=== PATIENT | female | born 1970 | race Caucasian/White ===

== ENCOUNTER → 2017-03-12 15:23 | Emergency (ER) | payer OTHER ==
[~2017-03-12 15:23] MED LIST: NS 0.9% 1000 ML* 1,000 ML IV ONE
--- NOTE | 2017-03-12 17:33 | RAD ---
INDICATION: Palpitations. COMPARISON: Comparison is made with a prior study from March 09, 2017. TECHNIQUE: A portable view of the chest was obtained. FINDINGS: The heart appears mildly prominent and unchanged from the prior exam. The lungs are underinflated and clear. No pleural effusion is seen. IMPRESSION: THE HEART APPEARS MILDLY PROMINENT FOR THIS PORTABLE EXAM AND IS UNCHANGED FROM THE PRIOR STUDY.
[2017-03-12 17:42] LABS: Hematocrit 38 % (35-47); Hemoglobin 12.3 g/dl (12.0-16.0); Mean Corpuscular HGB Conc 32 g/dl (31-36); Mean Corpuscular Hemoglobin 24 pg (27-31); Mean Corpuscular Volume 75 fL (80-97); Mean Platelet Volume 9 um3 (7.4-10.4); Red Blood Count 5.08 10^6/ul (4.0-5.4); Red Cell Distribution Width 17 % (10.5-15); White Blood Count 8.4 10^3/ul (3.5-10.8)
[2017-03-12 17:57] LABS: BUN/Creatinine Ratio 15.4 (8-20); EGFR African American 101.4 (>60); EGFR Non-African American 78.8 (>60); Globulin 2.8 g/dL (2-4); Magnesium 2.1 mg/dL (1.9-2.7); Potassium 3.9 mmol/L (3.5-5.0); Total Bilirubin 0.2 mg/dL (0.2-1.0); Total Protein 6.8 g/dL (6.4-8.9)
[2017-03-12 18:23] LABS: TSH (Thyroid Stimulating Horm) 1.57 mcIU/mL (0.34-5.60)
[2017-03-12 22:38] VITALS: BP 134/86
--- NOTE | 2017-03-13 03:19 | ED ---
Giselle Jacinto Alfonso, scribed for Deborah Gottlieb MD on 03/12/17 at 1808 . 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 She states she was diagnosed with atrial flutter on 03/09/17 and was advised to f/u with cardiology. Has not yet seen the gas systems worker. Her symptoms are alleviated and exacerbated by nothing. She c/o SOB. Denies CP, nausea, and vomiting. Pt was started on atenolol 25mg qd and has been taking that. Pt has also been avoiding alcohol and caffeine. - History of Current Complaint Chief Complaint: EDDysrhythmPalp Time Seen by Provider: 03/12/17 16:47 Hx Obtained From: Patient Onset/Duration: Sudden Onset, Lasting Hours - Earlier today, Still Present Timing: Constant Severity Initially: Moderate Severity Currently: Moderate Character: Pounding Aggravating: Nothing Alleviating: Nothing Associated Signs & Symptoms: Negative - Nausea, vomitting, CP, Shortness of Breath Related History: Similar Episode/Dx as - afib/flutter, SVT - Allergy/Home Medications Allergies/Adverse Reactions: Allergies Allergy/AdvReac Type Severity Reaction Status Date / Time ENVIRONMENTAL Allergy SINUS, Uncoded 12/18/13 06:42 BREATHING DIFFICULTY PMH/Surg Hx/FS Hx/Imm Hx Endocrine/Hematology History: Reports: Hx Anemia - HX- ON IRON FOR Cardiovascular History: Reports: Hx Supraventricular Ventricular Tachycardia Denies: Hx Hypertension Respiratory History: Reports: Hx Asthma - PRN ALBUTEROL Sensory History: Reports: Hx Contacts or Glasses - GLASSES Denies: Hx Hearing Aid Opthamlomology History: Reports: Hx Contacts or Glasses - GLASSES - Surgical History Surgery Procedure, Year, and Place: WISDOM TEETH EXTRACTION- DENTAL OFFICE Hx Anesthesia Reactions: No Infectious Disease History: No Infectious Disease History: Denies: Traveled Outside the [place] in Last 30 Days - Family History Known Family History: Positive: Cardiac Disease, Hypertension, Diabetes - Social History Alcohol Use: Occasionally Alcohol Amount: 2-3 PER MONTH Hx Substance Use: No Substance Use Type: Reports: None Hx Tobacco Use: No Smoking Status (MU): Never Smoked Tobacco Review of Systems Constitutional: Negative Positive: Palpitations. Negative: Chest Pain Positive: Shortness Of Breath Negative: Vomiting, Nausea Musculoskeletal: Negative Skin: Negative Neurological: Negative Psychological: Normal All Other Systems Reviewed And Are Negative: Yes Physical Exam Triage Information Reviewed: Yes Vital Signs On Initial Exam: Initial Vitals Temp Pulse Resp BP Pulse Ox 98.2 F 124 20 137/112 100 03/12/17 15:25 03/12/17 15:25 03/12/17 15:25 03/12/17 15:25 03/12/17 15:25 Vital Signs Reviewed: Yes Appearance: Positive: No Pain Distress, Well-Nourished, Ill-Appearing Skin: Positive: Warm, Dry Eyes: Positive: EOMI, Conjunctiva Clear ENT: Positive: Normal ENT inspection, Hearing grossly normal. Negative: Muffled /hoarse voice Neck: Positive: Supple, Nontender, Other: - Prominent neck vein pulsations. Respiratory/Lung Sounds: Positive: Clear to Auscultation, Breath Sounds Present , Other - No respiratory distress Cardiovascular: Positive: RRR, Pulses are Symmetrical in both Upper and Lower Extremities, Other - brisk capillary refill. Negative: Murmur Abdomen Description: Positive: Nontender, No Organomegaly, Soft. Negative: Distended, Guarding, Hepatomegaly, McBurney's Point Tenderness, Peritoneal Signs , Pulsatile Mass, Splenomegaly Bowel Sounds: Positive: Present Musculoskeletal: Positive: Strength/ROM Intact. Negative: Edema Left, Edema Right Neurological: Positive: Sensory/Motor Intact, Alert, Oriented to Person Place, Time, Other - Alert, Muscle tone normal. Negative: Facial Droop, Focal Deficit @, Slurred Speech Psychiatric: Positive: Normal - Crowder Coma Scale Coma Scale Total: 15 Diagnostics - Vital Signs Vital Signs Temp Pulse Resp BP Pulse Ox 03/12/17 17:30 121 23 123/98 99 03/12/17 17:28 122 14 100 03/12/17 17:27 124/88 03/12/17 15:28 98.1 F 123 20 137/112 100 03/12/17 15:25 98.2 F 124 20 137/112 100 - Laboratory Lab Results: Lab Results 03/12/17 03/12/17 03/12/17 Range/Units 17:30 17:30 17:30 WBC 8.4 (3.5-10.8) 10^3/ul RBC 5.08 (4.0-5.4) 10^6/ul Hgb 12.3 (12.0-16.0) g/dl Hct 38 (35-47) % MCV 75 L (80-97) fL MCH 24 L (27-31) pg MCHC 32 (31-36) g/dl RDW 17 H (10.5-15) % Plt Count 317 (150-450) 10^3/ul MPV 9 (7.4-10.4) um3 Neut % (Auto) 59.6 (38-83) % Lymph % (Auto) 30.2 (25-47) % [place] % (Auto) 7.6 (1-9) % Eos % (Auto) 1.5 (0-6) % Baso % (Auto) 1.1 (0-2) % Absolute Neuts (auto) 5.0 (1.5-7.7) 10^3/ul Absolute Lymphs (auto) 2.5 (1.0-4.8) 10^3/ul Absolute Monos (auto) 0.6 (0-0.8) 10^3/ul Absolute Eos (auto) 0.1 (0-0.6) 10^3/ul Absolute Basos (auto) 0.1 (0-0.2) 10^3/ul Absolute Nucleated RBC 0.01 10^3/ul Nucleated RBC % 0.1 INR (Anticoag Therapy) 0.88 L (0.89-1.11) APTT 32.8 (26.0-36.3) seconds D-Dimer, Quantitative 294 H (Less Than 230) ng/mL Sodium 139 (133-145) mmol/L Potassium 3.9 (3.5-5.0) mmol/L Chloride 106 (101-111) mmol/L Carbon Dioxide 27 (22-32) mmol/L Anion Gap 6 (2-11) mmol/L BUN 12 (6-24) mg/dL Creatinine 0.78 (0.51-0.95) mg/dL Est GFR ( Amer) 101.4 (>60) Est GFR (Non-Af Amer) 78.8 (>60) BUN/Creatinine Ratio 15.4 (8-20) Glucose 104 H (70-100) mg/dL Lactic Acid (0.5-2.0) mmol/L Calcium 9.0 (8.6-10.3) mg/dL Magnesium 2.1 (1.9-2.7) mg/dL Total Bilirubin 0.20 (0.2-1.0) mg/dL AST 18 (13-39) U/L ALT 17 (7-52) U/L Alkaline Phosphatase 51 (34-104) U/L Total Creatine Kinase 61 (10-223) U/L CK-MB (CK-2) Pending Troponin I Pending Total Protein 6.8 (6.4-8.9) g/dL Albumin 4.0 (3.2-5.2) g/dL Globulin 2.8 (2-4) g/dL Albumin/Globulin Ratio 1.4 (1-3) TSH Pending 03/12/17 Range/Units 17:30 WBC (3.5-10.8) 10^3/ul RBC (4.0-5.4) 10^6/ul Hgb (12.0-16.0) g/dl Hct (35-47) % MCV (80-97) fL MCH (27-31) pg MCHC (31-36) g/dl RDW (10.5-15) % Plt Count (150-450) 10^3/ul MPV (7.4-10.4) um3 Neut % (Auto) (38-83) % Lymph % (Auto) (25-47) % [place] % (Auto) (1-9) % Eos % (Auto) (0-6) % Baso % (Auto) (0-2) % Absolute Neuts (auto) (1.5-7.7) 10^3/ul Absolute Lymphs (auto) (1.0-4.8) 10^3/ul Absolute Monos (auto) (0-0.8) 10^3/ul Absolute Eos (auto) (0-0.6) 10^3/ul Absolute Basos (auto) (0-0.2) 10^3/ul Absolute Nucleated RBC 10^3/ul Nucleated RBC % INR (Anticoag Therapy) (0.89-1.11) APTT (26.0-36.3) seconds D-Dimer, Quantitative (Less Than 230) ng/mL Sodium (133-145) mmol/L Potassium (3.5-5.0) mmol/L Chloride (101-111) mmol/L Carbon Dioxide (22-32) mmol/L Anion Gap (2-11) mmol/L BUN (6-24) mg/dL Creatinine (0.51-0.95) mg/dL Est GFR ( Amer) (>60) Est GFR (Non-Af Amer) (>60) BUN/Creatinine Ratio (8-20) Glucose (70-100) mg/dL Lactic Acid 1.0 (0.5-2.0) mmol/L Calcium (8.6-10.3) mg/dL Magnesium (1.9-2.7) mg/dL Total Bilirubin (0.2-1.0) mg/dL AST (13-39) U/L ALT (7-52) U/L Alkaline Phosphatase (34-104) U/L Total Creatine Kinase (10-223) U/L CK-MB (CK-2) Troponin I Total Protein (6.4-8.9) g/dL Albumin (3.2-5.2) g/dL Globulin (2-4) g/dL Albumin/Globulin Ratio (1-3) TSH Result Diagrams: 03/12/17 17:30 03/12/17 17:30 Lab Statement: Any lab studies that have been ordered have been reviewed, and results considered in the medical decision making process. - Radiology CXR Xray Interpretation: No Acute Changes - THE HEART APPEARS MILDLY PROMINENT FOR THIS PORTABLE EXAM AND IS UNCHANGED FROM THE PRIOR STUDY. Radiology Interpretation Completed By: Radiologist - EKG 1110 Cardiac Rate: Tachycardia - 133 bpm EKG Rhythm: SVT - 133 bpm EKG Interpretation: Nl IV CT, nl QTC, inverted P waves in lead 3, no acute changes 0 Cardiac Rate: NL - 63 bpm EKG Rhythm: Sinus Rhythm EKG Interpretation: Nl AV/IV CT, nl axis EKG Comparison: Other - compared with previous at 1110 now in sinus rhythm Re-Evaluation - Re-Evaluation First Eval Re-Evaluation Time: 21:51 Change: Improved Comment: Pt is doing well. Discussed D/C plan with her. No CP, no SOB, no pain in her calves. No FHx clots No PMHx clots. No risk factors for DVT. Sinus rhythm 63 on the monitor. States she has been taking the atenolol daily. Course/Dx - Course Assessment/Plan: Pt is a 46 y/o F who presents to ED c/o palpitations. She c/o SOB. Denies CP, N/V. Dx atrial flutter on 03/09/2017 and started on atenolol. CXR reveals no acute findings. initial EKG reveals SVT 133. Pt's rhythm broke spontaneously to SR. trop is neg, TSH normal. EKG's discussed with Dr. Shah. Allergies noted. Pt medications reviewed this visit. - Diagnoses Differential Diagnosis/HQI/PQRI: Positive: Coronary Artery Disease, Mitral Valve Prolapse, Paroxymal SVT Provider Diagnoses: Supraventricular tachycardia, Palpitations - Physician Notifications Discussed Care Of Patient With: Maciej Shah Time Discussed With Above Provider: 21:49 Instructed by Provider To: Have Pt Call For Appt. - He will see her in the office, have her call for an appointment. Advises she avoids alcohol and caffeine as well as continues her atenolol. - Critical Care Time Critical Care Time: 30-74 min Discharge - Discharge Plan Condition: Stable Disposition: HOME Patient Education Materials: Supraventricular Tachycardia (ED), Palpitations ( ED) Referrals: Maciej Shah, [Medical Doctor] - As Soon As Possible (Dr. Shah will see you in the office in follow up. ) Nessa Lind MD [Primary Care Provider] - Additional Instructions: Dr. Shah, gas systems worker, will see you in the office in follow up. He advises you to continue the atenolol 25mg daily. He also advises you to avoid any alcohol and caffeine. Return to the emergency department if any new or worsening symptoms. The documentation as recorded by the Giselle livingston Alfonso accurately reflects the service I personally performed and the decisions made by me, Deborah Gottlieb MD.
== END | disposition home or self-care (01) ==
LOC: ED 15:23
DX: I47.1 Supraventricular tachycardia (principal); R00.2 Palpitations; R06.02 Shortness of breath; J45.909 Unspecified asthma, uncomplicated
CPT/HCPCS: 36415; 71010; 80053; 82550; 82553; 83605; 83735; 83880; 84443; 84484; 85025; 85379; 85610; 85730; 93005; 96360; 99282

== ENCOUNTER 2017-04-11 17:46 | Emergency (ER) | payer OTHER ==
[2017-04-11 17:52] VITALS: BP 154/86
[2017-04-11] MEDS ORDERED: Lidocaine 1% MPF* 2 ML VIAL INJ ONE (17:54)
--- NOTE | 2017-04-11 17:54 | UC ---
Laceration HPI - HPI Summary HPI Summary: 46YEAR OLD FEMALE PRESENTS WITH COMPLAINS OF RIGHT LITTLE FINGER LACERATION SECONDARY TO A KNIFE. - History Of Current Complaint Chief Complaint: UCLaceration Stated Complaint: FINGER LAC Time Seen by Provider: 04/11/17 17:53 - Allergies/Home Medications Allergies/Adverse Reactions: Allergies Allergy/AdvReac Type Severity Reaction Status Date / Time ENVIRONMENTAL Allergy SINUS, Uncoded 04/11/17 17:51 BREATHING DIFFICULTY PMH/Surg Hx/FS Hx/Imm Hx - Surgical History Surgical History: Yes Surgery Procedure, Year, and Place: WISDOM TEETH EXTRACTION- DENTAL OFFICE - Family History Known Family History: Positive: Cardiac Disease, Hypertension, Diabetes - Social History Alcohol Use: None Alcohol Amount: 2-3 PER MONTH Substance Use Type: None Smoking Status (MU): Never Smoked Tobacco - Immunization History Most Recent Tetanus Shot: 2006 Review of Systems Constitutional: Negative Skin: Other - RIGHT LITTLE FINGER LACERATION WITH FLAP INTACT Eyes: Negative ENT: Negative Respiratory: Negative Cardiovascular: Negative Gastrointestinal: Negative Genitourinary: Negative Motor: Negative Neurovascular: Negative Musculoskeletal: Negative Neurological: Negative Psychological: Negative All Other Systems Reviewed And Are Negative: Yes Physical Exam Triage Information Reviewed: Yes Vital Signs: Initial Vital Signs Temp 36.5 C 04/11/17 17:48 Pulse 68 04/11/17 17:48 Resp 16 04/11/17 17:48 BP 154/86 04/11/17 17:48 Pulse Ox 97 04/11/17 17:48 Eye Exam: Normal ENT Exam: Normal Dental Exam: Normal Neck exam: Normal Neck: Positive: 1 Respiratory Exam: Normal Cardiovascular Exam: Normal Abdominal Exam: Normal Musculoskeletal Exam: Normal Neurological Exam: Normal Psychological Exam: Normal Skin Exam: Normal Skin: Positive: Other - RIGHT LITTLE FINGER LACERATION WITH FLAP INTACT Laceration Repair - Laceration Repair 1 Laceration Size After Repair: Length (cm) - < 2.5 CM Modified For Repair: No Type Injection: Local Anesthesia Used: 1.0% Lido Cleansing Completed Via Routine Prep: Yes Closure Material: Sutures - 5.0 NYLON , INTERRUPTED, #3 Suture Of: Skin Suture Type: Nylon Laceration Course/Dx - Differential Dx - Laceration/Wound Provider Diagnoses: LACERATION RIGHT LITTLE FINGER Discharge - Discharge Plan Condition: Stable Disposition: HOME Prescriptions: Sulfamethox/Trimethoprim DS* [Bactrim DS 800/160 TAB*] 1 tab PO BID #14 tab Patient Education Materials: Laceration (ED) Referrals: Nessa Lind MD [Primary Care Provider] -
[2017-04-11] MEDS ORDERED: Tetan/Diph/Pertus SYR(Tdap)* 0.5 ML SYR(BOOSTRIX) use SYR IM ONE (18:05)
[2017-04-11] MEDS ORDERED: Sulfamethox/Trimethoprim DS 800/160* TAB PO ONE (18:34)
== END 2017-04-11 18:54 | disposition home or self-care (01) ==
LOC: UCEAST 17:46
DX: S61.217A Laceration without foreign body of left little finger without damage to nail, initial encounter (principal); W26.0XXA Contact with knife, initial encounter
CPT/HCPCS: 12001; 90471; 90715; 99213; A9270-GY; G0463

== ENCOUNTER 2017-10-14 20:04 | Emergency (ER) | payer OTHER ==
[2017-10-14 20:17] VITALS: BP 146/79
[2017-10-14] MEDS ORDERED: predniSONE TAB* 20 MG PO ONE (20:32)
[2017-10-14] MEDS ORDERED: Albuterol/Ipratropium NEB.SOL* Albuterol 2.5 MG/Ipratropium 0.5 MG 3 ML INH ONE (20:32)
[2017-10-14] MEDS ORDERED: Amoxicillin/Clavulanate SUSP* BTL PO ONE (20:33)
--- NOTE | 2017-10-14 21:32 | UC ---
Cortez Jacinto Gabriel, scribed for Alli Gonzáles MD on 10/14/17 at 2027 . Respiratory Complaint HPI - HPI Summary HPI Summary: This patient is a 47 year old F presenting to [facility] with a chief complaint of inability to catch her breath since earlier tonight. Patient reports sinus congestion, cough, and sinus pressure. Patient denies ear pain and sinus pain. Patient reports having a cold that moved into her chest causing a persistent cough that is worse tonight. She has a history of asthma and has used her inhaler 3 times in the last hour with no relief. Additionally she takes a inhaled steroid one a day. - History of Current Complaint Chief Complaint: UCRespiratory Stated Complaint: URI Time Seen by Provider: 10/14/17 20:19 Hx Obtained From: Patient Hx Last Menstrual Period: 1 WEEK AGO Onset/Duration: Still Present Timing: Constant Severity Initially: Severe Severity Currently: Mild Alleviating Factors: Nothing Associated Signs And Symptoms: Positive: Nasal Congestion - Allergies/Home Medications Allergies/Adverse Reactions: Allergies Allergy/AdvReac Type Severity Reaction Status Date / Time ENVIRONMENTAL Allergy SINUS, Uncoded 10/14/17 20:17 BREATHING DIFFICULTY Home Medications: Home Medications Albuterol HFA INHALER* [Ventolin HFA Inhaler*] PRN 10/14/17 [History] PMH/Surg Hx/FS Hx/Imm Hx Previously Healthy: No Respiratory History: Asthma - Surgical History Surgical History: Yes Surgery Procedure, Year, and Place: WISDOM TEETH EXTRACTION- DENTAL OFFICE, ABLATION FOR TACHYCARDIA 07/2017 - Family History Known Family History: Positive: Cardiac Disease, Hypertension, Diabetes, Other - HLD Negative: Renal Disease, Respiratory Disease, Seizure Disorder - Social History Occupation: Employed Full-time Alcohol Use: Occasionally Alcohol Amount: 2-3 PER MONTH Substance Use Type: None Smoking Status (MU): Never Smoked Tobacco - Immunization History Most Recent Tetanus Shot: 2006 Review of Systems ENT: Sinus Congestion, Other - sinus pressure Respiratory: Cough, Other - feels like she can't catch her breath All Other Systems Reviewed And Are Negative: Yes Physical Exam Triage Information Reviewed: Yes Appearance: Well-Appearing, No Pain Distress Vital Signs: Initial Vital Signs Temp 98.1 F 10/14/17 20:13 Pulse 77 10/14/17 20:13 Resp 18 10/14/17 20:13 BP 146/79 10/14/17 20:13 Pulse Ox 100 10/14/17 20:13 Vital Signs Reviewed: Yes Eyes: Positive: Conjunctiva Clear ENT: Positive: Nasal congestion, TM dull - left, TM red - left, Sinus tenderness - right max Respiratory: Positive: Decreased breath sounds Cardiovascular: Positive: RRR, No Murmur Abdomen Description: Positive: Nontender Musculoskeletal: Positive: ROM Intact Neurological: Positive: Alert, Muscle Tone Normal Psychological: Positive: Age Appropriate Behavior Skin Exam: Normal UC Diagnostic Evaluation - Laboratory O2 Sat by Pulse Oximetry: 100 Re-Evaluation - Re-Evaluation First Eval Re-Evaluation Time: 21:31 Change: Improved Comment: reports feeling much better after neb and meds, and much better air movement. Ambulating comfortably. Respiratory Course/Dx - Course Course Of Treatment: 47 yr old with OM and bronchitis. DC home. FU with PMD - Differential Dx/Diagnosis Provider Diagnoses: otitis media. acute bronchitis Discharge - Discharge Plan Condition: Good Disposition: HOME Prescriptions: Amoxicillin/Clavulanate SUSP* [Augmentin SUSP*] 800 mg PO BID #200 ml PrednisoLONE LIQ 3 MG/ML UDC* [PrednisoLONE LIQ 3 MG/ML 5 ml UDC*] 39 mg PO DAILY #52 ml Patient Education Materials: Otitis Media (ED), Acute Bronchitis (ED), Bronchospasm (ED), Hypertension (ED) Referrals: Nessa Lind MD [Primary Care Provider] - 1 Day The documentation as recorded by the Cortez livingston Gabriel accurately reflects the service I personally performed and the decisions made by , Alli Gonzáles MD.
== END 2017-10-14 21:40 | disposition home or self-care (01) ==
LOC: UCEAST 20:04
DX: H66.90 Otitis media, unspecified, unspecified ear (principal); J20.9 Acute bronchitis, unspecified; J45.909 Unspecified asthma, uncomplicated
CPT/HCPCS: 99213; A9270-GY; G0463; J7512

== ENCOUNTER 2018-12-15 08:32 | Emergency (ER) | payer OTHER ==
[2018-12-15 08:40] VITALS: BP 153/98
--- NOTE | 2018-12-15 09:27 | UC ---
Laceration HPI - HPI Summary HPI Summary: Patient Chief Complaint: laceration on dorsum of proximal digit of patients right index finger from serrated knife when cutting a bagel. No limitatioin of movement or sensation. Mild pain. MD note: vital signs stable. 153/98. Vital signs beyond normal range reviewed. Nurses Note Reviewed. Visit History Reviewed. Noncontributory to present complaint. Medications & Allergies Reviewed. - History Of Current Complaint Chief Complaint: UCLaceration Stated Complaint: FINGER LAC Time Seen by Provider: 12/15/18 08:47 Hx Last Menstrual Period: 1 WEEK AGO Pain Intensity: 1 - Allergies/Home Medications Allergies/Adverse Reactions: Allergies Allergy/AdvReac Type Severity Reaction Status Date / Time ENVIRONMENTAL Allergy SINUS, Uncoded 12/15/18 08:40 BREATHING DIFFICULTY PMH/Surg Hx/FS Hx/Imm Hx - Additional Past Medical History Additional PMH: PMH reviewed. Cardiac ablation. Family History: Positive history of: -HYPTERTENSION -CARDIOVASCULAR DISEASE -DIABETES SOCIAL HISTORY: Employment: [employer] administrator Family Environment: lives with family Habits: non smoker. - Surgical History Surgical History: Yes Surgery Procedure, Year, and Place: WISDOM TEETH EXTRACTION- DENTAL OFFICE, ABLATION FOR TACHYCARDIA 07/2017 - Family History Known Family History: Positive: Cardiac Disease, Hypertension, Diabetes, Other - HLD Negative: Renal Disease, Respiratory Disease, Seizure Disorder - Social History Alcohol Use: Occasionally Alcohol Amount: 2-3 PER MONTH Substance Use Type: None Smoking Status (MU): Never Smoked Tobacco - Immunization History Most Recent Tetanus Shot: 2006 Review of Systems All Other Systems Reviewed And Are Negative: Yes Constitutional: Positive: Negative Skin: Positive: Negative Eyes: Positive: Negative ENT: Positive: Negative Respiratory: Positive: Negative Cardiovascular: Positive: Negative Gastrointestinal: Positive: Negative Genitourinary: Positive: Negative Motor: Negative: Decreased ROM, Weakness Neurovascular: Negative: Decreased Sensation Musculoskeletal: Positive: Negative Neurological: Positive: Negative Is Patient Immunocompromised?: No - Comments Additional Review of Systems Comments: A 12 point review of systems was completed and was significantly positive for: laceration right index finger . The remainder of the review was negative except as stated above in the ROS or HPI. Physical Exam - Summary Physical Exam Summary: Appearance: The patient is well-appearing, is in no pain or distress, and is well-nourished. Eyes: Conjunctiva are clear. Pupils are equal and reactive to light and accommodation. Extra ocular muscle movement is intact. ENT: The hearing is grossly normal, the pharynx is normal, and the TMs are normal. There is no muffled or hoarse voice. No stridor. Neck: The neck is supple and there is no lymphadenopathy. Respiratory: The chest is nontender to palpation and without crepitus. The lungs are clear, there are normal breath sounds, and there is no respiratory distress. No wheezes, rales or rhonchi. Cardiovascular: Heart sounds reveal a regular rate and rhythm. There are no clicks, rubs or murmurs. There are no carotid bruits or thrills. Circulation is grossly intact. Abdomen: The abdomen is soft and nontender. There is no organomegaly. Bowel sounds are present and within normal limits. No point tenderness at McBurneys point. Musculoskeletal: Strength is intact. The patient moves all extremities. Neurological: The patient is alert. Motor and sensory are examination grossly intact. Speech is normal. Psychological: The patient displays age appropriate behavior Skin: Negative for rashes. Vital Signs: Initial Vital Signs Temp 98 F 12/15/18 08:37 Pulse 80 12/15/18 08:37 Resp 16 12/15/18 08:37 BP 153/98 12/15/18 08:37 Pulse Ox 99 12/15/18 08:37 Laceration Repair - Laceration Repair 1 Description: Linear Laceration Size After Repair: Length (cm) - 2.5 cm, Width (mm) - 1 mm, Depth (mm ) - 1mm Modified For Repair: No Cleansing Completed Via Routine Prep: Yes Closure Material: Skin Adhesive - good approximation and hemostasis Laceration Course/Dx - Course/Dx Course Of Treatment: 48 yo cut right index; 2.5 cm superficial wound on dorsum of prox phalanx of the index finger, dorsum. Well approximated. Cleaned and adhesive placed with good hemostasis and approximation. Instructions about adhesives given. MEDICATIONS REVIEWED: Medications have been included in the original chart and reviewed. HYPERTENSION STATUS REVIEWED. HTN NOTED: Hypertensive BP reading of 153/98; follow up with PCP within 4 weeks to recheck blood pressure has been recommended to patient. Patient voices understanding. - Differential Dx - Laceration/Wound Differental Diagnoses: Laceration - Diagnosis Provider Diagnosis: Laceration Discharge - Sign-Out/Discharge Documenting (check all that apply): Patient Departure All imaging exams completed and their final reports reviewed: No Studies - Discharge Plan Condition: Stable Disposition: HOME Patient Education Materials: Skin Adhesive Care (ED) Referrals: Nessa Lind MD [Primary Care Provider] - Additional Instructions: WE DISCUSSED: PLEASE SEEK CARE AT THE EMERGENCY DEPARTMENT IF SYMPTOMS WORSEN OR IF NEW SYMPTOMS DEVELOP. FOLLOW UP WITH YOUR PRIMARY CARE PHYSICIAN IF CONDITION CONTINUES BEYOND 3 DAYS WITHOUT IMPROVEMENT. We are open from 7 a.m. to 10 p.m. Call us with any questions or concerns. YOUR DIAGNOSIS IS: superficial linear laceration of the right index finger YOUR PRESCRIPTION RECOMMENDATION IS: none OTHER INSTRUCTIONS: Skin adhesive; recheck at any time for increased swelling, pain, redness or disability. Hypertension Discharge Instructions: Your blood pressure reading today was 153/98, indicating HYPERTENSION. Follow- up with your primary care provider within 4 weeks for blood pressure check and appropriate recommendations and treatment, as needed. - Billing Disposition and Condition Condition: STABLE Disposition: Home
== END 2018-12-15 09:45 | disposition home or self-care (01) ==
LOC: UCEAST 08:32
DX: S61.210A Laceration without foreign body of right index finger without damage to nail, initial encounter (principal); Z91.09 Other allergy status, other than to drugs and biological substances; W26.0XXA Contact with knife, initial encounter; Y92.9 Unspecified place or not applicable
CPT/HCPCS: 12001; 99211; G0463